=== PATIENT | female | born 1995 | race Caucasian/White ===

== ENCOUNTER 2018-05-06 09:20 | Emergency (ER) | payer BC, SELFPAY ==
--- OUTSIDE RECORDS SUMMARY | 2018-05-06 09:22 | XMS REPORT ---
:1995 [facility] Organization [facility] Address [address] [place] [address] Care Team Providers Name Role Phone DR TABITHA MONTES DE OCA Unavailable Unavailable DR PALMER JACKSON Unavailable Unavailable DR SHAWN JAIMES Unavailable Unavailable THEODORE, DR PERALTA Unavailable Unavailable CHIRAG, DR TOVAR Unavailable Unavailable Problems This patient has no known problems. Allergies, Adverse Reactions, Alerts This patient has no known allergies or adverse reactions. Medications This patient has no known medications. Encounters Start End Encounter Admission Attending Care Care Encounter Date/Time Date/Time Type Type Clinicians Facility Department ID 2018-04-17 2018-04-17 Emergency E TABITHA MONTES DE OCA [facility] [id number] 19:00:00 19:25:00 2018-01-20 2018-01-20 Emergency E RENETTA [facility] [id number] 14:08:00 15:55:00 PALMER 2017-12-25 2017-12-25 Emergency E RENETTA [facility] [id number] 12:48:00 13:40:00 PALMER 2017-11-07 2017-11-07 Emergency E SHAWN JAIMES [facility] [id number] 10:00:00 11:15:00 2017-11-02 2017-11-02 Emergency E THEODORE [facility] [id number] 21:10:00 23:54:00 FABIAN 2017-09-08 2017-09-09 Emergency E SHAWN JAIMES [facility] [id number] 22:16:00 02:05:00 2017-08-17 2017-08-18 Emergency E LA BEARD [facility] [id number] 20:54:00 23:55:00 Results Test Description Test Time Test Comments Text Results Atomic Results Result Comments XR HAND LEFT COMPLETE 3 2018-04-17 19:24:23 STUDY: Hand radiographHISTORY: VIEWS [id number]: Pain COMPARISON: No PriorTECHNIQUE: PA, oblique, and lateral views of the left hand. SITE: A1 FINDINGS:Please note that evaluation of the phalanges is limited due to patient flexionat the interphalangeal joints. There is no evidence of acute fracture ordislocation. There is chronic bony remodeling of the fifth metacarpaldiaphysis. The joint spaces are symmetric. There are no abnormal soft tissuecalcifications or radiopaque foreign bodiesIMPRESSION:No evidence of acute osseous abnormality. CT ABDOMEN AND PELVIS 2018-01-20 15:36:12 EXAMINATION: CT ABDOMEN AND PELVIS WITH CONTRAST WITH CONTRAST.LOCATION: S17.HISTORY: Upper abdominal pain.COMPARISON: CT abdomen/pelvis 09/08/17.TECHNIQUE: CT imaging was performed of abdomen and pelvis after intravenousadministration of 100 cc of Omnipaque-300, excretory phase imaging was alsoperformed. Oral contrast material was not administered. One or more thefollowing dose reduction techniques were used: Automated exposure control,adjustment of mA and/or kV according to patient size, and use of iterativereconstruction technique.FINDINGS: Examination is limited due to lack of oral contrast.Visualized lung bases appear unremarkable.Liver, gallbladder, spleen, pancreas, adrenals and kidneys appear unremarkable. No hydronephrosis. Underdistended urinary bladder.The bowel loops appear normal in course and caliber. No bowel obstruction.Unremarkable appendix.No abdominal or pelvic bulky lymphadenopathy is identified.No free fluid or pneumoperitoneum. Uterus appears unremarkable by CT technique.Follicles within both ovaries.Visualized osseous structures appear unremarkable.IMPRESSION:No acute findings within abdomen nor pelvis. AMYLASE AND LIPASE 2018-01-20 15:05:00 Test Item Value Reference Range Comments AMYLASE (test code=10A) 44 U/L 28-100 LIPASE (test code=60A) 110 IU/L 73-393 COMPREHENSIVE METABOLIC [id number] 15:05:00 Test Item Value Reference Range Comments GLUCOSE (test code=06D) 95 mg/dL 75-100 SODIUM (test code=01A) 139 mmol/L 136-145 POTASSIUM (test code=01B) 3.9 mmol/L 3.6-5.1 CHLORIDE (test code=04A) 105 mmol/L 98-107 CO2 (test code=02A) 28 mmol/L 22-32 ANION GAP (test code=ANG) 9.9 mmol/L BUN (test code=05D) 7 mg/dL 7-18 CREATININE (test code=03E) 0.5 mg/dL 0.4-1.1 BUN/CREA (test code=BCR) 13 12-20 CALCIUM (test code=09D) 9.0 mg/dL 8.3-9.5 BILI TOTAL (test code=11A) 0.4 mg/dL 0.2-1.0 PROTEIN (test code=07D) 7.5 g/dL 6.4-8.2 ALBUMIN (test code=08D) 3.5 g/dL 3.5-4.8 GLOBULIN (test code=GLB) 4.0 g/dL 1.5-3.8 ALB/GLOB (test code=AGRR) 0.9 1.0-2.6 ALK PHOS (test code=35A) 73 IU/L 42-121 AST (test code=30A) 11 IU/L <=42 ALT (test code=31A) 20 IU/L <=78 PRO TIME AND [id number] 15:00:00 Test Item Value Reference Range Comments PT (test code=TT) 12.1 s 9.8-13.6 INR (test code=INR) 1.1 INRH (test code=INRH) SUGGESTED THERAPEUTIC RANGE FOR INR: 2.5 - 3.5 For Patients with Prosthetic Valves or Patients with recurrent Thromboembolic Events 2.0 - 3.0 For Most Other Applications PTT (test code=PTT) 30.3 s 20.2-38.0 PTTH (test code=PTTH) To monitor the effectiveness of heparin, we offer the Anti-Xa (Heparin Assay). It can be used for either unfractionated or LMW Heparin. Order Code is ANTI-XA SERUM [id number] 14:56:00 Test Item Value Reference Range Comments PREG SRM (test code=PGS) NEGATIVE NEGATIVE URINALYSIS WITH [id number] 14:53:00 Test Item Value Reference Range Comments COLOR (test code=COLU) YELLOW YELLOW CLARITY (test code=CLA) CLEAR CLEAR GLUCOSE UR (test code=UA GLUCOSE) NEGATIVE NEGATIVE BILI UR (test code=BILE) NEGATIVE NEGATIVE KETONES UR (test code=ITZEL) NEGATIVE NEGATIVE SP GRAVITY (test code=SPGR) 1.007 1.005-1.030 PH UR (test code=PH) 7.5 4.5-8.0 PROTEIN UR (test code=PU) NEGATIVE NEGATIVE UROBIL UR (test code=UROQ) 0.2 EU/dL 0.2-1.0 NITRITE UR (test code=NITRITE) NEGATIVE NEGATIVE BLOOD UR (test code=UA BLOOD) 3+ NEGATIVE LEUK ES UR (test code=LEUK) NEGATIVE NEGATIVE WBC UR (test code=UWBC) 0 /HPF 0-5 RBC UR (test code=URBC) 30 /HPF 0-2 EPITH UR (test code=UEPC) FEW /LPF FEW BACTERIA UR (test code=UBACT) FEW /HPF NONE CAST UR (test code=CAST) /LPF NONE CRYSTAL UR (test code=CRYU) / LPF NONE MUCUS UR (test code=MUC) / HPF NONE AMORPH UR (test code=HUMBRETO) / HPF NONE TRICH UR (test code=UTRICH) /HPF NONE YEAST UR (test code=UY) /HPF NONE SPERM UR (test code=USPERM) /HPF NONE CBC (INCLUDES AUTOMATED DIFFERENTIAL)2018-01-20 14:52:00 Test Item Value Reference Range Comments WBC (test code=WBC) 12.0 10\S\3/uL 4.5-11.0 RBC (test code=RBC) 4.75 10\S\6/uL 4.30-5.70 HGB (test code=HBG) 13.8 g/dL 12.0-15.5 HCT (test code=HCT) 41.1 % 35.0-44.0 MCV (test code=MCV) 86.5 fL 81.0-99.0 MCH (test code=MCH) 29.1 pg 27.0-31.0 MCHC (test code=MCHC) 33.6 g/dL 32.0-36.0 RDW (test code=RDW) 12.6 % 11.5-14.5 PLT (test code=PLT) 290 10\S\3/uL 130-400 MPV (test code=MPV) 9.6 fL 9.4-12.4 NEUTROP # (test code=NE#) 8.7 10\S\3/uL 1.6-8.0 LYMPH # (test code=LY#) 2.6 10\S\3/uL 1.1-3.5 MONOCYTE # (test code=MO#) 0.5 10\S\3/uL 0.0-1.1 EOSINOPH # (test code=EO#) 0.2 10\S\3/uL 0.0-0.7 BASOPHIL # (test code=BA#) 0.0 10\S\3/uL 0.0-0.3 IG # (test code=IG#) 0.04 10\S\3/uL 0.00-0.06 NRBC # (test code=NRBC#) 0.00 10\S\3/uL 0.00-0.01 NEUTROPH % (test code=NE%) 72.5 % 35.0-73.0 LYMPH % (test code=LY%) 21.5 % 20.0-55.0 MONO % (test code=MO%) 4.1 % 2.5-10.0 EOSINOPH % (test code=EO%) 1.3 % 0.0-5.0 BASOPHIL % (test code=BA%) 0.3 % 0.0-2.0 IG % (test code=IG%) 0.3 % 0.0-0.8 NRBC% (test code=NRBC%) 0.0 % 0.0-0.2 MANDIFF (test code=MDIFF) NO NO RBC MORPH (test code=RBCMOR) NORMAL COMPREHENSIVE METABOLIC [id number] 11:02:00 Test Item Value Reference Range Comments GLUCOSE (test code=06D) 96 mg/dL 75-100 SODIUM (test code=01A) 137 mmol/L 136-145 POTASSIUM (test code=01B) 3.3 mmol/L 3.6-5.1 CHLORIDE (test code=04A) 102 mmol/L 98-107 CO2 (test code=02A) 29 mmol/L 22-32 ANION GAP (test code=ANG) 9.3 mmol/L BUN (test code=05D) 13 mg/dL 7-18 CREATININE (test code=03E) 0.6 mg/dL 0.4-1.1 BUN/CREA (test code=BCR) 21 12-20 CALCIUM (test code=09D) 9.0 mg/dL 8.3-9.5 BILI TOTAL (test code=11A) 0.7 mg/dL 0.2-1.0 PROTEIN (test code=07D) 7.7 g/dL 6.4-8.2 ALBUMIN (test code=08D) 3.9 g/dL 3.5-4.8 GLOBULIN (test code=GLB) 3.8 g/dL 1.5-3.8 ALB/GLOB (test code=AGRR) 1.0 1.0-2.6 ALK PHOS (test code=35A) 79 IU/L 42-121 AST (test code=30A) 9 IU/L <=42 ALT (test code=31A) 19 IU/L <=78 PRO TIME AND [id number] 11:02:00 Test Item Value Reference Range Comments PT (test code=TT) 13.6 s 9.8-13.6 INR (test code=INR) 1.2 INRH (test code=INRH) SUGGESTED THERAPEUTIC RANGE FOR INR: 2.5 - 3.5 For Patients with Prosthetic Valves or Patients with recurrent Thromboembolic Events 2.0 - 3.0 For Most Other Applications PTT (test code=PTT) 32.0 s 20.2-38.0 PTTH (test code=PTTH) To monitor the effectiveness of heparin, we offer the Anti-Xa (Heparin Assay). It can be used for either unfractionated or LMW Heparin. Order Code is ANTI-XA SERUM [id number] 10:58:00 Test Item Value Reference Range Comments PREG SRM (test code=PGS) NEGATIVE NEGATIVE [id number] 10:55:00 Test Item Value Reference Range Comments MAGNESIUM (test code=48A) 1.8 mg/dL 1.8-2.4 CBC (INCLUDES AUTOMATED DIFFERENTIAL)2017-11-07 10:48:00 Test Item Value Reference Range Comments WBC (test code=WBC) 12.7 10\S\3/uL 4.5-11.0 RBC (test code=RBC) 5.23 10\S\6/uL 4.30-5.70 HGB (test code=HBG) 14.9 g/dL 12.0-15.5 HCT (test code=HCT) 45.2 % 35.0-44.0 MCV (test code=MCV) 86.4 fL 81.0-99.0 MCH (test code=MCH) 28.5 pg 27.0-31.0 MCHC (test code=MCHC) 33.0 g/dL 32.0-36.0 RDW (test code=RDW) 12.5 % 11.5-14.5 PLT (test code=PLT) 274 10\S\3/uL 130-400 MPV (test code=MPV) 9.8 fL 9.4-12.4 NEUTROP # (test code=NE#) 8.9 10\S\3/uL 1.6-8.0 LYMPH # (test code=LY#) 3.0 10\S\3/uL 1.1-3.5 MONOCYTE # (test code=MO#) 0.6 10\S\3/uL 0.0-1.1 EOSINOPH # (test code=EO#) 0.2 10\S\3/uL 0.0-0.7 BASOPHIL # (test code=BA#) 0.0 10\S\3/uL 0.0-0.3 IG # (test code=IG#) 0.03 10\S\3/uL 0.00-0.06 NRBC # (test code=NRBC#) 0.00 10\S\3/uL 0.00-0.01 NEUTROPH % (test code=NE%) 70.1 % 35.0-73.0 LYMPH % (test code=LY%) 23.4 % 20.0-55.0 MONO % (test code=MO%) 4.4 % 2.5-10.0 EOSINOPH % (test code=EO%) 1.6 % 0.0-5.0 BASOPHIL % (test code=BA%) 0.3 % 0.0-2.0 IG % (test code=IG%) 0.2 % 0.0-0.8 NRBC% (test code=NRBC%) 0.0 % 0.0-0.2 MANDIFF (test code=MDIFF) NO NO RBC MORPH (test code=RBCMOR) NORMAL XR CHEST 1 VIEW [id number] 10:32:59Portable AP chest, 1 viewLocation Code: [id number] HISTORY: [id number]: Chest painCOMPARISON: 11/02/2017COMMENT: The lungs are clear and well inflated. The costophrenic angles are sharp. Thecardiomediastinal silhouette is unremarkable. The bones are intact.IMPRESSION : No acute abnormalityDIRECT STREP GROUP [id number] 07:29:00 Test Item Value Reference Range Comments Culture Observations (test NO BETA HEMOLYTIC code=COB1) STREPTOCOCCUS ISOLATED Direct Exam (test code=DE3) NEGATIVE FOR STREP A ANTIGEN AMYLASE AND [id number] 22:25:00 Test Item Value Reference Range Comments AMYLASE (test code=10A) 40 U/L 28-100 LIPASE (test code=60A) 119 IU/L 73-393 COMPREHENSIVE METABOLIC [id number] 22:25:00 Test Item Value Reference Range Comments GLUCOSE (test code=06D) 105 mg/dL 75-100 SODIUM (test code=01A) 140 mmol/L 136-145 POTASSIUM (test code=01B) 4.0 mmol/L 3.6-5.1 CHLORIDE (test code=04A) 107 mmol/L 98-107 CO2 (test code=02A) 26 mmol/L 22-32 ANION GAP (test code=ANG) 11.0 mmol/L BUN (test code=05D) 11 mg/dL 7-18 CREATININE (test code=03E) 0.6 mg/dL 0.4-1.1 BUN/CREA (test code=BCR) 18 12-20 CALCIUM (test code=09D) 8.9 mg/dL 8.3-9.5 BILI TOTAL (test code=11A) 0.4 mg/dL 0.2-1.0 PROTEIN (test code=07D) 7.3 g/dL 6.4-8.2 ALBUMIN (test code=08D) 3.5 g/dL 3.5-4.8 GLOBULIN (test code=GLB) 3.8 g/dL 1.5-3.8 ALB/GLOB (test code=AGRR) 0.9 1.0-2.6 ALK PHOS (test code=35A) 79 IU/L 42-121 AST (test code=30A) 10 IU/L <=42 ALT (test code=31A) 19 IU/L <=78 [id number] 22:20:00 Test Item Value Reference Range Comments COLOR (test code=COLU) YELLOW YELLOW CLARITY (test code=CLA) CLEAR CLEAR GLUCOSE UR (test code=UA GLUCOSE) NEGATIVE NEGATIVE BILI UR (test code=BILE) NEGATIVE NEGATIVE KETONES UR (test code=ITZEL) NEGATIVE NEGATIVE SP GRAVITY (test code=SPGR) 1.027 1.005-1.030 PH UR (test code=PH) 7.5 4.5-8.0 PROTEIN UR (test code=PU) NEGATIVE NEGATIVE UROBIL UR (test code=UROQ) 0.2 EU/dL 0.2-1.0 NITRITE UR (test code=NITRITE) NEGATIVE NEGATIVE BLOOD UR (test code=UA BLOOD) NEGATIVE NEGATIVE LEUK ES UR (test code=LEUK) NEGATIVE NEGATIVE PRO TIME AND [id number] 22:16:00 Test Item Value Reference Range Comments PT (test code=TT) 12.5 s 9.8-13.6 INR (test code=INR) 1.1 INRH (test code=INRH) SUGGESTED THERAPEUTIC RANGE FOR INR: 2.5 - 3.5 For Patients with Prosthetic Valves or Patients with recurrent Thromboembolic Events 2.0 - 3.0 For Most Other Applications PTT (test code=PTT) 30.9 s 20.2-38.0 PTTH (test code=PTTH) To monitor the effectiveness of heparin, we offer the Anti-Xa (Heparin Assay). It can be used for either unfractionated or LMW Heparin. Order Code is ANTI-XA SERUM [id number] 22:16:00 Test Item Value Reference Range Comments PREG SRM (test code=PGS) NEGATIVE NEGATIVE XR CHEST 1 VIEW [id number] 22:07:52AFTER HOURS SERVICE ON: 11/02/2017 10: 07 PMAP Portable ChestLocation Code E32SEQNMDD: R05: COUGHFINDINGS: There are no infiltrates. There are no pleural effusions. There is nopneumothorax. Cardiac silhouette and mediastinum appear within normal limits. IMPRESSION: No active intrathoracic findings.CBC (INCLUDES AUTOMATED DIFFERENTIAL)2017-11-02 22 :06:00 Test Item Value Reference Range Comments WBC (test code=WBC) 10.5 10\S\3/uL 4.5-11.0 RBC (test code=RBC) 4.84 10\S\6/uL 4.30-5.70 HGB (test code=HBG) 13.8 g/dL 12.0-15.5 HCT (test code=HCT) 41.3 % 35.0-44.0 MCV (test code=MCV) 85.3 fL 81.0-99.0 MCH (test code=MCH) 28.5 pg 27.0-31.0 MCHC (test code=MCHC) 33.4 g/dL 32.0-36.0 RDW (test code=RDW) 12.5 % 11.5-14.5 PLT (test code=PLT) 250 10\S\3/uL 130-400 MPV (test code=MPV) 9.8 fL 9.4-12.4 NEUTROP # (test code=NE#) 7.6 10\S\3/uL 1.6-8.0 LYMPH # (test code=LY#) 2.1 10\S\3/uL 1.1-3.5 MONOCYTE # (test code=MO#) 0.6 10\S\3/uL 0.0-1.1 EOSINOPH # (test code=EO#) 0.1 10\S\3/uL 0.0-0.7 BASOPHIL # (test code=BA#) 0.0 10\S\3/uL 0.0-0.3 IG # (test code=IG#) 0.03 10\S\3/uL 0.00-0.06 NRBC # (test code=NRBC#) 0.00 10\S\3/uL 0.00-0.01 NEUTROPH % (test code=NE%) 72.6 % 35.0-73.0 LYMPH % (test code=LY%) 19.8 % 20.0-55.0 MONO % (test code=MO%) 6.1 % 2.5-10.0 EOSINOPH % (test code=EO%) 0.8 % 0.0-5.0 BASOPHIL % (test code=BA%) 0.4 % 0.0-2.0 IG % (test code=IG%) 0.3 % 0.0-0.8 NRBC% (test code=NRBC%) 0.0 % 0.0-0.2 MANDIFF (test code=MDIFF) NO NO RBC MORPH (test code=RBCMOR) NORMAL LACTIC [id number] 01:55:00 Test Item Value Reference Range Comments LACTIC ACD (test code=LA) 0.9 mmol/L 0.4-2.0 CBC (INCLUDES AUTOMATED DIFFERENTIAL)2017-09-09 01:17:00 Test Item Value Reference Range Comments WBC (test code=WBC) 16.9 10\S\3/uL 4.5-11.0 RBC (test code=RBC) 4.86 10\S\6/uL 4.30-5.70 HGB (test code=HBG) 14.0 g/dL 12.0-15.5 HCT (test code=HCT) 42.4 % 35.0-44.0 MCV (test code=MCV) 87.2 fL 81.0-99.0 MCH (test code=MCH) 28.8 pg 27.0-31.0 MCHC (test code=MCHC) 33.0 g/dL 32.0-36.0 RDW (test code=RDW) 12.9 % 11.5-14.5 PLT (test code=PLT) 229 10\S\3/uL 130-400 MPV (test code=MPV) 9.9 fL 9.4-12.4 NEUTROP # (test code=NE#) 14.9 10\S\3/uL 1.6-8.0 LYMPH # (test code=LY#) 1.2 10\S\3/uL 1.1-3.5 MONOCYTE # (test code=MO#) 0.6 10\S\3/uL 0.0-1.1 EOSINOPH # (test code=EO#) 0.1 10\S\3/uL 0.0-0.7 BASOPHIL # (test code=BA#) 0.0 10\S\3/uL 0.0-0.3 IG # (test code=IG#) 0.05 10\S\3/uL 0.00-0.06 NRBC # (test code=NRBC#) 0.00 10\S\3/uL 0.00-0.01 NEUTROPH % (test code=NE%) 88.6 % 35.0-73.0 LYMPH % (test code=LY%) 7.1 % 20.0-55.0 MONO % (test code=MO%) 3.5 % 2.5-10.0 EOSINOPH % (test code=EO%) 0.3 % 0.0-5.0 BASOPHIL % (test code=BA%) 0.2 % 0.0-2.0 IG % (test code=IG%) 0.3 % 0.0-0.8 NRBC% (test code=NRBC%) 0.0 % 0.0-0.2 MANDIFF (test code=MDIFF) NO NO RBC MORPH (test code=RBCMOR) NORMAL CT ABDOMEN AND PELVIS WITH [id number] 23:43:13CT ABDOMEN AND PELVIS ( with intravenous contrast )Location code: [id number] INDICATIONS: Abdominalpain.TECHNIQUE: Volumetric acquisition of abdomen from the level of the domes of thediaphragm through the symphysis pubis using 5 mm collimation after theadministration of intravenous and oral contrast. Axial and coronal images wereinterpreted.Dose lowering technique with automatic exposure control utilized.COMPARISON: 08/17/2017.FINDINGS: Visualized lung bases demonstrate no consolidations or effusions.Liver, spleen, pancreas, adrenals and both kidneys are unremarkable. There isno evidence of intrahepatic biliary duct dilatation. No hydronephrosis seen.Both kidneys excrete contrast promptly and symmetrically.Visualized loops of bowel are within normal limits. Normal appendix. Moderatefecal material throughout the colon.Subcentimeter nodes in the right mid to lower abdomen noted.Aorta tapers normally without aneurysmal dilatation. No lymphadenopathyCT Pelvis: The urinary bladder is unremarkable. Mildly prominent ovaries notedcontaining follicular cysts measuring 2 cm on the right and 1.8 cm on the left.Uterus within normal limits. 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 No acute findings.2. Mild constipation.3. Follicular cysts ovaries.4. Mild mesenteric adenitis.DRUGS OF [id number] 23:34:00 Test Item Value Reference Range Comments DRUG SCRN (test code=HDOA) URINE DRUG SCREEN This is an unconfirmed screening result and should not be used for non-medical purposes CANNABINOD (test code=88C) Negative NEGATIVE AMPHETAMINE (test code=84A) Negative NEGATIVE BENZODIAZP (test code=86A) Negative NEGATIVE BARBITURAT (test code=85A) Negative NEGATIVE OPIATES (test code=92B) Negative NEGATIVE COCAINE (test code=87A) Negative NEGATIVE PHENCYCLID (test code=66A) Negative NEGATIVE METHADONE (test code=64A) Negative NEGATIVE DOAH (test code=DOAH) URINE DRUG SCREEN Cut-off values are as follows: ---- Cannabinoids 50 ng/mL Cocaine 300 ng/mL Amphetamines 1000 ng/mL Phencyclidine 25 ng/mL Benzodiazepines 200 ng.mL Methadone 300 ng/mL Barbiturates 200 ng/mL Opiates 2000 ng/mL AMYLASE AND [id number] 22:58:00 Test Item Value Reference Range Comments AMYLASE (test code=10A) 40 U/L 28-100 LIPASE (test code=60A) 106 IU/L 73-393 COMPREHENSIVE METABOLIC [id number] 22:58:00 Test Item Value Reference Range Comments GLUCOSE (test code=06D) 100 mg/dL 75-100 SODIUM (test code=01A) 138 mmol/L 136-145 POTASSIUM (test code=01B) 3.9 mmol/L 3.6-5.1 CHLORIDE (test code=04A) 103 mmol/L 98-107 CO2 (test code=02A) 26 mmol/L 22-32 ANION GAP (test code=ANG) 12.9 mmol/L BUN (test code=05D) 13 mg/dL 7-18 CREATININE (test code=03E) 0.6 mg/dL 0.4-1.1 BUN/CREA (test code=BCR) 21 12-20 CALCIUM (test code=09D) 9.0 mg/dL 8.3-9.5 BILI TOTAL (test code=11A) 0.4 mg/dL 0.2-1.0 PROTEIN (test code=07D) 8.0 g/dL 6.4-8.2 ALBUMIN (test code=08D) 4.0 g/dL 3.5-4.8 GLOBULIN (test code=GLB) 4.0 g/dL 1.5-3.8 ALB/GLOB (test code=AGRR) 1.0 1.0-2.6 ALK PHOS (test code=35A) 86 IU/L 42-121 AST (test code=30A) 12 IU/L <=42 ALT (test code=31A) 22 IU/L <=78 SERUM [id number] 22:51:00 Test Item Value Reference Range Comments PREG SRM (test code=PGS) NEGATIVE NEGATIVE CBC (INCLUDES AUTOMATED DIFFERENTIAL)2017-09-08 22:43:00 Test Item Value Reference Range Comments WBC (test code=WBC) 21.7 10\S\3/uL 4.5-11.0 RBC (test code=RBC) 5.10 10\S\6/uL 4.30-5.70 HGB (test code=HBG) 14.6 g/dL 12.0-15.5 HCT (test code=HCT) 43.8 % 35.0-44.0 MCV (test code=MCV) 85.9 fL 81.0-99.0 MCH (test code=MCH) 28.6 pg 27.0-31.0 MCHC (test code=MCHC) 33.3 g/dL 32.0-36.0 RDW (test code=RDW) 12.9 % 11.5-14.5 PLT (test code=PLT) 279 10\S\3/uL 130-400 MPV (test code=MPV) 9.8 fL 9.4-12.4 NEUTROP # (test code=NE#) 18.7 10\S\3/uL 1.6-8.0 LYMPH # (test code=LY#) 1.5 10\S\3/uL 1.1-3.5 MONOCYTE # (test code=MO#) 1.3 10\S\3/uL 0.0-1.1 EOSINOPH # (test code=EO#) 0.1 10\S\3/uL 0.0-0.7 BASOPHIL # (test code=BA#) 0.0 10\S\3/uL 0.0-0.3 IG # (test code=IG#) 0.10 10\S\3/uL 0.00-0.06 NRBC # (test code=NRBC#) 0.00 10\S\3/uL 0.00-0.01 NEUTROPH % (test code=NE%) 86.2 % 35.0-73.0 LYMPH % (test code=LY%) 6.9 % 20.0-55.0 MONO % (test code=MO%) 6.0 % 2.5-10.0 EOSINOPH % (test code=EO%) 0.3 % 0.0-5.0 BASOPHIL % (test code=BA%) 0.1 % 0.0-2.0 IG % (test code=IG%) 0.5 % 0.0-0.8 NRBC% (test code=NRBC%) 0.0 % 0.0-0.2 MANDIFF (test code=MDIFF) NO NO RBC MORPH (test code=RBCMOR) NORMAL [id number] 22:43:00 Test Item Value Reference Range Comments COLOR (test code=COLU) YELLOW YELLOW CLARITY (test code=CLA) CLEAR CLEAR GLUCOSE UR (test code=UA GLUCOSE) NEGATIVE NEGATIVE BILI UR (test code=BILE) NEGATIVE NEGATIVE KETONES UR (test code=ITZEL) 1+ NEGATIVE SP GRAVITY (test code=SPGR) 1.034 1.005-1.030 PH UR (test code=PH) 6.0 4.5-8.0 PROTEIN UR (test code=PU) NEGATIVE NEGATIVE UROBIL UR (test code=UROQ) 0.2 EU/dL 0.2-1.0 NITRITE UR (test code=NITRITE) NEGATIVE NEGATIVE BLOOD UR (test code=UA BLOOD) NEGATIVE NEGATIVE LEUK ES UR (test code=LEUK) NEGATIVE NEGATIVE U/S BREAST [id number] 23:52:51Examination: Bilateral breast ultrasoundLocation code: [id number]: NoneDiscussion:Clinical history is remarkable for breast discharge. Grayscale and colorDoppler evaluation of all 4 quadrants of thebreasts bilaterally, retroareolarregion, and axilla is performed.There is no sonographic abnormalitypresent within the right breast. The axillais unremarkable.Within the left breast, there is a bilobed minimally complex cyst at 3:00 1 cmfrom the nipple measuring 7 mm in long axis x 5 mm x 3 mm, benign inappearance. No solid mass, architectural distortion, or other pathology ispresent. Axilla is unremarkable.Impression:ACR Category 2 Benign Sonogram1. There is no sonographic evidence of malignancy. Given age, follow-up perACR/ACS guidelines.U/S BREAST [id number] 23:52:51Examination: Bilateral breast ultrasoundLocation code: [id number]: NoneDiscussion:Clinical history is remarkable for breast discharge. Grayscale and colorDoppler evaluation of all 4 quadrants of thebreasts bilaterally, retroareolarregion, and axilla is performed.There is no sonographic abnormalitypresent within the right breast. The axillais unremarkable.Within the left breast, there is a bilobed minimally complex cyst at 3:00 1 cmfrom the nipple measuring 7 mm in long axis x 5 mm x 3 mm, benign inappearance. No solid mass, architectural distortion, or other pathology ispresent. Axilla is unremarkable.Impression:ACR Category 2 Benign Sonogram1. There is no sonographic evidence of malignancy. Given age, follow-up perACR/ACS guidelines.CT ABDOMEN AND PELVIS WITH [id number] 22:54:01Examination: Abdomen and pelvic CT with contrastLocation code: [id number]: NoneTechnique:Axial postcontrast contiguous images were obtained through the abdomen andpelvis followed by coronal and sagittal reformations. One or more of thefollowing dose reduction techniques were used: Automated exposurecontrol,adjustment of the mA and or KV according to patient size, and/or utilization ofiterative reconstruction technique.Creatinine 0.7, 98 cc Omnipaque 300Discussion:Clinical history is remarkable for abdominal pain. The lung bases are clear.Heart is normal in size.Within the abdomen and pelvis, theliver is normal. Gallbladder is contracted.Spleen and pancreas are within normal limits. The adrenalgland is normal.Kidneys demonstrate appropriate contour, appropriate secretion, no renal orureteric calculus is identified.Mild feces is present within the colon. The appendix is visualized and it isnormal. Small bowel is of normal caliber.Right lower quadrant pericecal lymph nodes could represent mesenteric adenitis.The bladder, uterus, and adnexa are unremarkable.No lytic or blastic lesions are present within the osseous structures.Impression:1. Right lower quadrant pericecal lymph nodes could represent mesentericadenitis.2. Gallbladder contraction.CT HEAD W/O [id number] 22:48:54Examination: Head CT without contrastLocation code: [id number]: NoneTechnique:Axial contiguous images through the brain were obtained without contrast media.One or more of the following dose reduction techniques were used: Automatedexposure control, adjustment of the mA and or KV according to patient size,and/or utilization of iterative reconstruction technique.Discussion:Clinical history is remarkable for possible pituitary problem. Pituitary glandis of normal size. There is no evidence of hydrocephalus, midline shift,extra-axial fluid collection, hemorrhage, acute infarction, or space-occupyingmass lesion. The liang-white matter differentiation is preserved.The calvarium and the paranasal sinuses are within normal limits.Impression:1. No acute intracranial abnormality.DRUGS OF [id number] 22:07:00 Test Item Value Reference Range Comments DRUG SCRN (test code=HDOA) URINE DRUG SCREEN This is an unconfirmed screening result and should not be used for non-medical purposes CANNABINOD (test code=88C) Negative NEGATIVE AMPHETAMINE (test code=84A) Negative NEGATIVE BENZODIAZP (test code=86A) Negative NEGATIVE BARBITURAT (test code=85A) Negative NEGATIVE OPIATES (test code=92B) Negative NEGATIVE COCAINE (test code=87A) Negative NEGATIVE PHENCYCLID (test code=66A) Negative NEGATIVE METHADONE (test code=64A) Negative NEGATIVE DOAH (test code=DOAH) URINE DRUG SCREEN Cut-off values are as follows: ---- Cannabinoids 50 ng/mL Cocaine 300 ng/mL Amphetamines 1000 ng/mL Phencyclidine 25 ng/mL Benzodiazepines 200 ng.mL Methadone 300 ng/mL Barbiturates 200 ng/mL Opiates 2000 ng/mL URINALYSIS WITH [id number] 22:03:00 Test Item Value Reference Range Comments COLOR (test code=COLU) Red YELLOW CLARITY (test code=CLA) Cloudy CLEAR GLUCOSE UR (test code=UA GLUCOSE) Negative NEGATIVE BILI UR (test code=BILE) Negative NEGATIVE KETONES UR (test code=ITZEL) Negative NEGATIVE SP GRAVITY (test code=SPGR) 1.025 1.005-1.030 PH UR (test code=PH) 6.5 4.5-8.0 PROTEIN UR (test code=PU) 1+ NEGATIVE UROBIL UR (test code=UROQ) 1.0 EU/dL 0.2-1.0 NITRITE UR (test code=NITRITE) Negative NEGATIVE BLOOD UR (test code=UA BLOOD) 3+ NEGATIVE LEUK ES UR (test code=LEUK) Negative NEGATIVE WBC UR (test code=UWBC) 6 /HPF 0-5 RBC UR (test code=URBC) >50 /HPF 0-2 EPITH UR (test code=UEPC) FEW /LPF FEW BACTERIA UR (test code=UBACT) NONE /HPF NONE CAST UR (test code=CAST) /LPF NONE CRYSTAL UR (test code=CRYU) / LPF NONE MUCUS UR (test code=MUC) / HPF NONE AMORPH UR (test code=HUMBERTO) / HPF NONE TRICH UR (test code=UTRICH) /HPF NONE YEAST UR (test code=UY) /HPF NONE SPERM UR (test code=USPERM) /HPF NONE AMYLASE AND [id number] 21:58:00 Test Item Value Reference Range Comments AMYLASE (test code=10A) 51 U/L 28-100 LIPASE (test code=60A) 186 IU/L 73-393 COMPREHENSIVE METABOLIC [id number] 21:58:00 Test Item Value Reference Range Comments GLUCOSE (test code=06D) 100 mg/dL 75-100 SODIUM (test code=01A) 139 mmol/L 136-145 POTASSIUM (test code=01B) 3.6 mmol/L 3.6-5.1 CHLORIDE (test code=04A) 104 mmol/L 98-107 CO2 (test code=02A) 27 mmol/L 22-32 ANION GAP (test code=ANG) 11.6 mmol/L BUN (test code=05D) 14 mg/dL 7-18 CREATININE (test code=03E) 0.7 mg/dL 0.4-1.1 BUN/CREA (test code=BCR) 20 12-20 CALCIUM (test code=09D) 9.0 mg/dL 8.3-9.5 BILI TOTAL (test code=11A) 0.3 mg/dL 0.2-1.0 PROTEIN (test code=07D) 7.7 g/dL 6.4-8.2 ALBUMIN (test code=08D) 3.6 g/dL 3.5-4.8 GLOBULIN (test code=GLB) 4.1 g/dL 1.5-3.8 ALB/GLOB (test code=AGRR) 0.9 1.0-2.6 ALK PHOS (test code=35A) 85 IU/L 42-121 AST (test code=30A) 11 IU/L <=42 ALT (test code=31A) 19 IU/L <=78 SERUM [id number] 21:49:00 Test Item Value Reference Range Comments PREG SRM (test code=PGS) NEGATIVE NEGATIVE CBC (INCLUDES AUTOMATED DIFFERENTIAL)[id number] 21:45:00 Test Item Value Reference Range Comments WBC (test code=WBC) 12.8 10\S\3/uL 4.5-11.0 RBC (test code=RBC) 4.80 10\S\6/uL 4.30-5.70 HGB (test code=HBG) 13.6 g/dL 12.0-15.5 HCT (test code=HCT) 41.9 % 35.0-44.0 MCV (test code=MCV) 87.3 fL 81.0-99.0 MCH (test code=MCH) 28.3 pg 27.0-31.0 MCHC (test code=MCHC) 32.5 g/dL 32.0-36.0 RDW (test code=RDW) 13.2 % 11.5-14.5 PLT (test code=PLT) 275 10\S\3/uL 130-400 MPV (test code=MPV) 9.6 fL 9.4-12.4 NEUTROP # (test code=NE#) 8.3 10\S\3/uL 1.6-8.0 LYMPH # (test code=LY#) 3.3 10\S\3/uL 1.1-3.5 MONOCYTE # (test code=MO#) 0.8 10\S\3/uL 0.0-1.1 EOSINOPH # (test code=EO#) 0.2 10\S\3/uL 0.0-0.7 BASOPHIL # (test code=BA#) 0.0 10\S\3/uL 0.0-0.3 IG # (test code=IG#) 0.04 10\S\3/uL 0.00-0.06 NRBC # (test code=NRBC#) 0.00 10\S\3/uL 0.00-0.01 NEUTROPH % (test code=NE%) 64.9 % 35.0-73.0 LYMPH % (test code=LY%) 26.2 % 20.0-55.0 MONO % (test code=MO%) 6.4 % 2.5-10.0 EOSINOPH % (test code=EO%) 1.9 % 0.0-5.0 BASOPHIL % (test code=BA%) 0.3 % 0.0-2.0 IG % (test code=IG%) 0.3 % 0.0-0.8 NRBC% (test code=NRBC%) 0.0 % 0.0-0.2 MANDIFF (test code=MDIFF) NO NO
[2018-05-06 10:14] LABS: Absolute Lymphocytes (CBC) 1.9 K/uL (0.7-4.9); Absolute Monocytes 0.6 K/uL (0.1-1.3); Absolute Neutrophil 6.9 K/uL (1.8-8.0); Basophils % 0.4 % (0-1.3); Eosinophils % 2.2 % (0-4.4); Hematocrit 44.1 % (36.0-45.0); Lymphocytes % 20.2 % (15.3-44.8); MPV 8.4 fL (7.6-11.3); Monocytes % 6.1 % (3.3-12.3); RBC Red Blood Cell Count 5.15 M/uL (3.86-4.86)
[2018-05-06 10:25] LABS: ALT/SGPT 22 U/L (12-78); AST/SGOT 6 U/L (15-37); Albumin 3.5 g/dL (3.4-5.0); Alkaline Phosphatase 72 U/L (45-117); BUN Blood Urea Nitrogen 14 mg/dL (7-18); Bicarbonate 26 mmol/L (21-32); Bilirubin Direct < 0.1 mg/dL (0-0.2); Bilirubin Total 0.3 mg/dL (0.2-1.0); Glucose Level 101 mg/dL (74-106); Lipase 166 U/L (73-393); Potassium 4.1 mmol/L (3.5-5.1); Protein, Total 7.2 g/dL (6.4-8.2); Sodium Level 140 mmol/L (136-145)
[2018-05-06 10:33] LABS: HCG, Quantitative < 1 mIU/mL (1-3)
--- NOTE | 2018-05-06 10:35 | RAD REPORT ---
EXAM DESCRIPTION: US - Transvaginal OB - 05/06/2018 10:12 am CLINICAL HISTORY: with abdominal pain COMPARISON: None. FINDINGS: The uterus measures 7 x 3 x 3 centimeters. A gestational sac is not visualized within the endometrium. The right ovary is normal in size and echotexture containing 1.7 centimeter follicle. A 2 centimeter left ovarian hemorrhagic cyst is present. Right and left adnexa appear unremarkable. No significant free fluid is seen. IMPRESSION: These findings may indicate a normal early intrauterine in which the gestation al sac is not yet seen. and ectopic can also have this appearance. This all should be correlated clinically and with serial beta HCG levels. Followup endovaginal ultrasound in 7 days is recommended
[2018-05-06 10:44] LABS: Urine Blood NEGATIVE (NEG); Urine Glucose NEGATIVE (NEG); Urine Protein NEGATIVE (NEG); Urine Specific Gravity <1.005 (1.005-1.030); Urine pH 5.5 (5.0-7.0)
[2018-05-06 11:08] LABS: Urine Bacteria NONE SEEN /HPF (<20); Urine RBC NONE SEEN /HPF (NONE SEEN)
[2018-05-06 11:09] LABS: Urine Culture Reflex Order NOT NEEDED
--- NOTE | 2018-05-06 11:15 | EDPHYS ---
Physician Documentation [facility] Name: Aura Grant Age: 22 yrs Sex: Female : 1995 Arrival Date: 05/06/2018 Time: 09:23 Bed 8 Private MD: ED Physician Star Weston HPI: 05/06 11:10 This 22 yrs old Female presents to ER via Ambulatory with complaints of rn Abdominal Pain, Vomiting/Diarrhea. 11:10 The patient presents to the emergency department with nausea, vomiting, diarrhea, rn abdominal pain, of the abdomen diffusely. 11:11 Onset: The symptoms/episode began/occurred this morning. Possible causes: unknown. rn Severity of symptoms: At their worst the symptoms were mild in the emergency department the symptoms are unchanged. The patient has experienced similar episodes in the past. The patient has not recently seen a physician. REports nausea/vomiting/diarrhea/abd cramping since this morning, + nausea and vomiting for a few days, has had 3 positive tests at home, thinks is , no fever, cramping is intermittent. NO vaginal bleeding or discharge. 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 - Ebola Screening: : Patient negative for fever greater than or equal to 101.5 degrees Fahrenheit, and additional compatible Ebola Virus Disease symptoms Patient denies exposure to infectious person Patient denies travel to an Ebola-affected area in the 21 days before illness onset No symptoms or risks identified at this time. - Social history:: Smoking status: Patient/guardian denies using tobacco. - Family history:: not pertinent. - Hospitalizations: : No recent hospitalization is reported. ROS: 11:11 Constitutional: Negative for fever, chills, and weight loss, Eyes: Negative for injury, rn pain, redness, and discharge, Neck: Negative for injury, pain, and swelling, Cardiovascular: Negative for chest pain, palpitations, and edema, Respiratory: Negative for shortness of breath, cough, wheezing, and pleuritic chest pain, Abdomen/GI: Negative for abdominal pain, nausea, vomiting, diarrhea MS/Extremity: Negative for injury and deformity, Skin: Negative for injury, rash, and discoloration, Neuro: Negative for headache, weakness, numbness, tingling, and seizure. Exam: 11:11 Constitutional: This is a well developed, well nourished patient who is awake, alert, rn and in no acute distress. Head/Face: Normocephalic, atraumatic. Eyes: Pupils equal round and reactive to light, extra-ocular motions intact. Lids and lashes normal. Conjunctiva and sclera are non-icteric and not injected. Cornea within normal limits. Periorbital areas with no swelling, redness, or edema. ENT: MMM Abdomen/GI: soft, non-tender, no peritoneal signs Back: No spinal tenderness. No costovertebral tenderness. Full range of motion. Skin: Warm, dry with normal turgor. Normal color with no rashes, no lesions, and no evidence of cellulitis. MS/ Extremity: Pulses equal, no cyanosis. Neurovascular intact. Full, normal range of motion. Equal circumference. Neuro: Awake and alert, GCS 15, oriented to person, place, time, and situation. Cranial nerves II-XII grossly intact. Motor strength 5/5 in all extremities. Sensory grossly intact. Cerebellar exam normal. Normal gait. Vital Signs: 09:37 BP 118 / 81; Pulse 73; Resp 16; Temp 97.4(TE); Pulse Ox 100% on R/A; Weight 99.34 kg; iw Height 5 ft. 7 in. (170.18 cm); Pain 6/10; 11:22 BP 111 / 57; Pulse 77; Resp 18; Pulse Ox 99% on R/A; aj 09:37 Body Mass Index 34.30 (99.34 kg, 170.18 cm) iw MDM: 09:40 Patient medically screened. rn 11:13 Differential diagnosis: Nonspecific abd pain, gastritis, viral gastroenteritis, rn gastroenteritis, , ectopic, miscarriage. Data reviewed: vital signs, nurses notes, lab test result(s), radiologic studies, ultrasound, and as a result, I will discharge patient. Counseling: I had a detailed discussion with the patient and/or guardian regarding: the historical points, exam findings, and any diagnostic results supporting the discharge/admit diagnosis, lab results, radiology results, the need for outpatient follow up, to return to the emergency department if symptoms worsen or persist or if there are any questions or concerns that arise at home. Response to treatment: the patient's symptoms have mildly improved after treatment, and as a result, I will discharge patient. Special discussion: Based on the patient's Hx, exam, and Dx evaluation, there is no indication for emergent surgery or inpatient Tx. It is understood by the patient/guardian that if the Sx's persist or worsen they need to return immediately for re-evaluation. I discussed with the patient/guardian in detail that at this point there is no indication for admission to the hospital. It is understood, however, that if the symptoms persist or worsen the patient needs to return immediately for re-evaluation. ED course: UPT neg and HCG < 1, likely not , u/s without suspicious findings, + ovarian cyst, normal WBC, symptoms most consistent with viral enteritis given mid abd pain, vomiting/diarrhea. . 05/06 09:47 Order name: Basic Metabolic Panel; Complete Time: 10:49 05/06 09:47 Order name: CBC with Diff; Complete Time: 10:49 05/06 09:47 Order name: Hepatic Function; Complete Time: 10:49 05/06 09:47 Order name: Lipase; Complete Time: 10:49 05/06 09:47 Order name: Quantitative Hcg; Complete Time: 10:49 05/06 09:47 Order name: Urine Microscopic Only; Complete Time: 11:10 05/06 09:47 Order name: IV Saline Lock; Complete Time: 10:03 05/06 09:47 Order name: Labs collected and sent; Complete Time: 10:03 05/06 09:47 Order name: Urine Test (obtain specimen); Complete Time: 10:34 05/06 09:47 Order name: Urine Dipstick-Ancillary (obtain specimen); Complete Time: 10:34 05/06 09:47 Order name: US Transvaginal Ob; Complete Time: 10:49 05/06 10:36 Order name: Urine Dipstick--Ancillary (enter results); Complete Time: 10:49 bd Administered Medications: 11:34 Not Given (Other Intervention Used): NS 0.9% 1000 ml IV at 1000 ml once aj Disposition: 05/06/18 11:14 Discharged to Home. Impression: Vomiting, Diarrhea, unspecified, Enteritis. - Condition is Stable. - Discharge Instructions: Diarrhea, Adult, Nausea and Vomiting, Adult, Viral Gastroenteritis, Adult. - Prescriptions for Zofran ODT 4 mg Oral tablet,disintegrating - place 1 tablet by TRANSLINGUAL route every 8 hours; 20 tablet. - Medication Reconciliation Form, Thank You Letter, Antibiotic Education, Prescription Opioid Use form. - Follow up: Private Physician; When: As needed; Reason: Recheck today's complaints, Re-evaluation by your physician. - Problem is new. - Symptoms have improved. 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 Impression: Vomiting; Diarrhea, unspecified; aj Enteritis. Condition is Stable. Forms are Medication Reconciliation Form, Thank You Letter, Antibiotic Education, Prescription Opioid Use. Follow up: Private Physician; When: As needed; Reason: Recheck today's complaints, Re-evaluation by your physician. Problem is new. Symptoms have improved. rn
--- NOTE | 2018-05-06 11:15 | ER ---
Nurse's Notes [facility] Name: Aura Grant Age: 22 yrs Sex: Female : 1995 Arrival Date: 05/06/2018 Time: 09:23 Bed 8 Private MD: Diagnosis: Vomiting;Diarrhea, unspecified;Enteritis Presentation: 05/06 09:34 Presenting complaint: Patient states: had 3 positive tests at home, upper add iw pain radiating to lower abd since this morning, LMP 1-17-19, denies vaginal bleeding, also c/o vomiting and diarrhea. Transition of care: patient was not received from another setting of care. Onset of symptoms was May 06, 2018. Risk Assessment: Do you want to hurt yourself or someone else? Patient reports no desire to harm self or others. Initial Sepsis Screen: Does the patient meet any 2 criteria? No. Patient's initial sepsis screen is negative. Does the patient have a suspected source of infection? No. Patient's initial sepsis screen is negative. Care prior to arrival: None. 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 - Ebola Screening: : Patient negative for fever greater than or equal to 101.5 degrees Fahrenheit, and additional compatible Ebola Virus Disease symptoms Patient denies exposure to infectious person Patient denies travel to an Ebola-affected area in the 21 days before illness onset No symptoms or risks identified at this time. - Social history:: Smoking status: Patient/guardian denies using tobacco. - Family history:: not pertinent. - Hospitalizations: : No recent hospitalization is reported. Screenin:32 Abuse screen: Denies threats or abuse. Denies injuries from another. Nutritional aj screening: No deficits noted. Tuberculosis screening: No symptoms or risk factors identified. Fall Risk None identified. Assessment: 10:32 General: Appears in no apparent distress. comfortable, Behavior is calm, cooperative, aj appropriate for age. Pain: Complains of pain in back, abdomen and pelvis. Neuro: Level of Consciousness is awake, alert, obeys commands, Oriented to person, place, time, situation, Appropriate for age. Respiratory: Airway is patent Respiratory effort is even, unlabored, Respiratory pattern is regular, symmetrical. GI: Abdomen is obese, Bowel sounds present X 4 quads. Abd is soft and non tender. GI: Reports nausea, vomiting. Derm: Skin is intact, is healthy with good turgor, Skin is pink, warm \T\ dry. normal. Vital Signs: 09:37 BP 118 / 81; Pulse 73; Resp 16; Temp 97.4(TE); Pulse Ox 100% on R/A; Weight 99.34 kg; iw Height 5 ft. 7 in. (170.18 cm); Pain 6/10; 11:22 BP 111 / 57; Pulse 77; Resp 18; Pulse Ox 99% on R/A; aj 09:37 Body Mass Index 34.30 (99.34 kg, 170.18 cm) iw ED Course: 09:23 Patient arrived in ED. rg4 09:36 Triage completed. iw 09:37 Arm band placed on. iw 09:40 Star Weston MD is Attending Physician. rn 09:42 Houston Max, RN is Primary Nurse. bp 10:00 Alma Rosa Etienne, RN is Primary Nurse. aj 10:02 Inserted saline lock: 22 gauge in left antecubital area, using aseptic technique. Blood jb1 collected. 10:03 Initial lab(s) drawn, by me, sent to lab. jb1 10:14 US Transvaginal Ob In Process Unspecified. EDMS 10:32 Patient has correct armband on for positive identification. aj 10:34 Urine collected: clean catch specimen, clear, claudia colored. jb1 11:23 No provider procedures requiring assistance completed. IV discontinued, intact, aj bleeding controlled, No redness/swelling at site. Pressure dressing applied. Administered Medications: 11:34 Not Given (Other Intervention Used): NS 0.9% 1000 ml IV at 1000 ml once aj Outcome: 11:14 Discharge ordered by MD. rn 11:23 Discharged to home ambulatory. aj 11:23 Condition: good 11:23 Discharge instructions given to patient, Instructed on discharge instructions, follow up and referral plans. medication usage, Demonstrated understanding of instructions, follow-up care, medications, Prescriptions given X 1. 11:34 Patient left the ED. caity Signatures: Dispatcher [employer] CT Gabriel Tan jb1 Alma Rosa Etienne RN RN aj Williams, Irene, RN RN iw Nieto, Roman, MD MD rn Garcia, Myra rg4 Houston Max RN RN bp Corrections: (The following items were deleted from the chart) 10:03 10:02 Inserted saline lock: 22 gauge in left antecubital area, using aseptic technique. jb1 jb1
== END 2018-05-06 11:34 | disposition home or self-care (01) ==
LOC: ER 09:20
DX: K52.9 Noninfective gastroenteritis and colitis, unspecified (principal); R19.7 Diarrhea, unspecified
CPT/HCPCS: 36415; 76817; 80048; 80076; 81003; 81015; 83690; 84702; 85025; 99284